=== PATIENT | female | born 1960 | race Caucasian/White ===

== ENCOUNTER 2018-11-18 13:02 | Observation (INO) | payer BC ==
[2018-11-18 13:29] LABS: #Eosinphils 0.1 thou/uL (0.0-0.7); #Lymphocytes 1.9 thou/uL (1.20-3.40); #Monocytes 0.4 thou/uL (0.11-0.59); #Neutrophils 2.8 thou/uL (1.40-6.50); %Basophils 0.4 % (0.0-1.0); %Eosinophils 2.6 % (0.0-10.0); %Lymphocytes 36.4 % (21.0-51.0); %Monocytes 7.8 % (0.0-10.0); %Neutrophils 52.7 % (42.0-75.0); Hemoglobin 13.3 g/dL (12.0-16.0); Mean Corpuscular HGB CONC 33.4 g/dL (32.0-36.0); Mean Corpuscular Hemoglobin 30.3 pg (27.0-31.0); Mean Corpuscular Volume 90.5 fL (78.0-98.0); Mean Platelet Volume 7.2 fL (7.4-10.4); Platelet Count 245 thou/uL (130-400); RBC Distribution Width 11.9 % (11.5-14.5); Red Blood Cell (RBC) Count 4.38 mill/uL (4.20-5.40); White Blood Cell (WBC) Count 5.3 thou/uL (4.8-10.8)
[2018-11-18] MEDS ORDERED: Aspirin Chewable 81 MG TAB ONE (13:31)
--- NOTE | 2018-11-18 13:31 | RAD ---
EXAM: Single view of the chest HISTORY: Chest pain COMPARISON: None FINDINGS: Single view of the chest shows a normal sized cardiomediastinal silhouette. There is no jacky dence of consolidation, mass, or pleural effusion. The bones are unremarkable. IMPRESSION: No evidence of acute cardiopulmonary disease
[2018-11-18 13:51] LABS: ALT (SGPT) 28 U/L (8-55); AST (SGOT) 22 U/L (5-34); Albumin 4.4 g/dL (3.5-5.0); Alkaline Phosphatase 71 U/L (40-150); Anion Gap 14 mmol/L (10-20); BUN (Urea Nitrogen) 15 mg/dL (9.8-20.1); Bilirubin, Total 0.4 mg/dL (0.2-1.2); Calc. Creatinine Clearance 0 mL/min (70-130); Calcium 9.5 mg/dL (7.8-10.44); Carbon Dioxide 24 mmol/L (22-29); Chloride 103 mmol/L (98-107); Estimated GFR-MDRD 64; Globulin 2.7 g/dL (2.4-3.5); Glucose 100 mg/dL (70-105); Lipase 58 U/L (8-78); Potassium 3.2 mmol/L (3.5-5.1); Protein, Total 7.1 g/dL (6.0-8.3); Sodium 138 mmol/L (136-145)
[2018-11-18 17:01] LABS: Troponin I Less than 0.010 ng/mL (< 0.028)
[2018-11-18 17:47] VITALS: BMI 28.8
[2018-11-18] MEDS ORDERED: Ondansetron PF 4 MG/2 ML Vial IVP PRN (17:47)
[2018-11-18] MEDS ORDERED: Ondansetron ODT 4 MG TAB SL PRN (17:47)
[2018-11-18] MEDS ORDERED: Acetaminophen 325 MG TAB PO PRN (17:47)
[2018-11-18] MEDS ORDERED: Nitroglycerin 0.4 MG TAB (25 Tab Bottle) PO PRN (18:14)
[2018-11-18 20:16] LABS: Troponin I Less than 0.010 ng/mL (< 0.028)
[2018-11-18] MEDS: Famotidine 20 MG TAB PO SCH (21:23)
[2018-11-18] MEDS ORDERED: traMADol HCl 50 MG TAB PO PRN (21:30)
--- NOTE | 2018-11-18 22:05 | HP ---
PRIMARY CARE PHYSICIAN: Dr. Fausto Galvan. CHIEF COMPLAINT: Chest pain. HISTORY OF PRESENT ILLNESS: Ms. Valentin is a 58-year-old female with a past medical history of hypertension and hyperlipidemia, who had presented to [facility] earlier today after she had experienced midsternal chest pain that had radiated between her shoulder blades and up to right side of her jaw. She states that during this episode, she had also became lightheaded, nauseated and diaphoretic. She states that symptoms lasted for about 5 minutes and had spontaneously resolved. She states that she and her made their way to the truck and as she was sitting in the truck, she states symptoms returned at a lesser severity and had lasted between 5 and 10 minutes, which had resolved prior to arriving to the emergency department. During her initial workup, a portable chest x-ray was found to be normal and serial troponins were done and found to be normal as well. Blood pressure and other vital signs stable. She had denied any fever, chills, any headache, palpitations, shortness of breath, chest pain, abdominal pain, nausea, or vomiting in the ED. She was recently diagnosed with bilateral heel spurs and had a partial Achilles tendon tear on the right, which she wears a boot when she is up walking around. She states that this is slowly improving. REVIEW OF SYSTEMS: All other systems reviewed and found to be negative unless mentioned in the HPI. PAST MEDICAL HISTORY: History of breast cancer, hypertension and hyperlipidemia, which she is not on any medications for. PAST SURGICAL HISTORY: Bilateral mastectomies, hernia repair, and tubal ligation. SOCIAL HISTORY: The patient is a former smoker. She quit about 15 years ago and denies any alcohol or illicit drug use. KNOWN ALLERGIES: Iodine. CURRENT HOME MEDICATIONS: 1. Tramadol 50 mg oral t.i.d. as needed for pain. 2. Triamterene hydrochlorothiazide 75/50 mg oral daily. PHYSICAL EXAMINATION: VITAL SIGNS: BP 136/86, pulse 70, respirations 16, temperature 98.4 degrees, 99% on room air. GENERAL: The patient is awake, alert, and oriented x3. She is currently lying comfortably in bed and in no acute distress. HEENT: Atraumatic, normocephalic. Pupils are round and reactive to light. Extraocular muscles intact. Moist mucous membranes noted. NECK: Soft and supple. Trachea midline. CARDIOVASCULAR: Positive S1 and S2. Regular rate and rhythm. No murmur auscultated. RESPIRATORY: Clear to auscultation bilaterally. No wheezes, rales, or rhonchi. ABDOMEN: Soft, nontender. Bowel sounds present. MUSCULOSKELETAL: Strength 5+ bilaterally in upper and lower extremities. Moves all extremities equal. No edema noted. NEUROLOGIC: Cranial nerves 2 through 12 grossly intact. No focal deficits noted. Speech intact and normal. Gait not assessed. SKIN: Warm, dry, and intact. No rashes. No ulceration noted. PSYCHIATRIC: Good mood and affect. LABORATORY DATA: WBC 4.38, hemoglobin 13.3, platelet 245. D-dimer 0.31. Sodium 138, potassium 3.2, anion gap 14, BUN 15, creatinine 0.90, estimated GFR 64, troponin less than 0.010 x3, lipase 58. DIAGNOSTIC STUDIES: Portable chest x-ray revealed no evidence of acute cardiopulmonary disease. ASSESSMENT AND PLAN: 1. Chest pain. Serial troponins were found to be negative x3. There appears to be no changes on her EKG. She will undergo cardiac stress testing in the morning for further evaluation. She is currently asymptomatic at this time. 2. History of hypertension, currently not on any home medications at this time. Blood pressure and other vital signs will be monitored closely. 3. Hyperlipidemia, currently not on any home treatment regimen. Lipid panel will be checked in the morning. 4. Deep venous thrombosis and gastrointestinal prophylaxis. 5. Code status, full code. DISPOSITION: Pending further workup and clinical findings. Job ID: [id number]
[2018-11-19 05:48] LABS: #Basophils 0.1 thou/uL (0.0-0.2); #Eosinphils 0.2 thou/uL (0.0-0.7); #Lymphocytes 1.6 thou/uL (1.20-3.40); #Monocytes 0.4 thou/uL (0.11-0.59); #Neutrophils 2.6 thou/uL (1.40-6.50); %Basophils 1.1 % (0.0-1.0); %Eosinophils 3.5 % (0.0-10.0); %Lymphocytes 34.2 % (21.0-51.0); %Monocytes 7.8 % (0.0-10.0); %Neutrophils 53.4 % (42.0-75.0); Hemoglobin 13.2 g/dL (12.0-16.0); Mean Corpuscular HGB CONC 33.3 g/dL (32.0-36.0); Mean Corpuscular Hemoglobin 30.2 pg (27.0-31.0); Mean Corpuscular Volume 90.6 fL (78.0-98.0); Mean Platelet Volume 7.2 fL (7.4-10.4); Platelet Count 233 thou/uL (130-400); RBC Distribution Width 11.7 % (11.5-14.5); Red Blood Cell (RBC) Count 4.38 mill/uL (4.20-5.40); White Blood Cell (WBC) Count 4.8 thou/uL (4.8-10.8)
[2018-11-19 06:08] LABS: Anion Gap 13 mmol/L (10-20); BUN (Urea Nitrogen) 16 mg/dL (9.8-20.1); Calc. Creatinine Clearance 92 mL/min (70-130); Calcium 9.8 mg/dL (7.8-10.44); Carbon Dioxide 25 mmol/L (22-29); Cardiac Risk 2.8 (Less than 4.5); Chloride 105 mmol/L (98-107); Cholesterol 214 mg/dl (< 200 Desired); Estimated GFR-MDRD 67; Glucose 85 mg/dL (70-105); HDL Cholesterol 77 mg/dL (>60 Neg Risk); LDL Cholesterol, Calculated 125 mg/dL; Potassium 3.9 mmol/L (3.5-5.1); Sodium 139 mmol/L (136-145); Triglycerides 59 mg/dL (Less than 150)
[2018-11-19] MEDS ORDERED: Enoxaparin Sodium 40 MG/0.4 ML SYRINGE SC SCH (09:00)
[2018-11-19] MEDS: Famotidine 20 MG TAB PO SCH (09:11)
[2018-11-19 12:38] VITALS: BP 102/64; TEMP 98.1
--- NOTE | 2018-11-19 12:44 | NM ---
EXAM: Nuclear medicine cardiac perfusion examination with ejection fraction HISTORY: Chest pain TECHNIQUE: Rest images: 10 mCi technetium 99m sestamibi Stress images: 30 mCi of technetium 9M sestamibi; Adenosine COMPARISON: None FINDINGS: Tomographic images: No fixed or reversible perfusion defects. Gated images: Normal wall motion and ejection fraction of greater than 70%. EDV: 56 mL LHR: 0.3 TID: 1.0 IMPRESSION: No evidence of ischemia
[2018-11-19] MEDS ORDERED: ADENOSINE 60 MG/20 ML VIAL ONE (13:53)
--- NOTE | 2018-11-25 14:34 | EKG ---
Test Reason : Blood Pressure : / mmHG Vent. Rate : 076 BPM Atrial Rate : 076 BPM P-R Int : 166 ms QRS Dur : 084 ms QT Int : 400 ms P-R-T Axes : 060 050 017 degrees QTc Int : 450 ms Normal sinus rhythm Normal ECG Confirmed by LILIA FERRARO M.D. ([id number]), editorial manager JOHN JAQUEZ ([id number] on 11/25/2018 2:34:26 PM Referred By: Confirmed By:LILIA FERRARO M.D.
== END 2018-11-19 16:06 | disposition home or self-care (01) ==
LOC: ERS 13:02 → 2SW 16:00
PROVIDERS: ADMIT Internal Medicine; ATTEND Internal Medicine
DX: R07.2 Precordial pain (principal); I10 Essential (primary) hypertension; E78.5 Hyperlipidemia, unspecified; Z87.891 Personal history of nicotine dependence; Z88.4 Allergy status to anesthetic agent; Z79.899 Other long term (current) drug therapy
CPT/HCPCS: 36415; 71045; 78452; 80048; 80053; 80061; 83690; 84484; 85025; 85379; 93005; 93017; 94760; A9500; G0378; J0153; J1650